=== PATIENT | male | born 1990 | race Caucasian/White ===

== ENCOUNTER 2016-03-24 14:40 | Emergency (ER) | payer OTHER ==
[2016-03-24 14:55] VITALS: BP 137/71; PULSE 60; RESP 18; TEMP 98.5
--- NOTE | 2016-03-24 15:26 | ED ---
General Adult HPI - General Chief complaint: Upper Respiratory Infection Stated complaint: congestion Time Seen by Provider: 03/24/16 15:21 Source: patient, RN notes reviewed Mode of arrival: ambulatory Limitations: no limitations - History of Present Illness Initial comments: Patient would've [age]-year-old male who presents emergency room today with a chief complaint of cough congestion over the last week. Does admit to positive sputum production it's been green in color. Admits increased ear pain on the right side started earlier today. He admits to fullness. Patient denies any other complaints or associated symptoms. Patient denies any recent fever, chills , shortness of breath, chest pain, back pain, abdominal pain, nausea or vomiting , numbness or tingling, dysuria or hematuria, constipation or diarrhea, headaches or visual changes, or any other complaints. - Related Data Previous Rx's Medication Instructions Recorded Albuterol Inhaler [Ventolin Hfa 1 - 2 puff INHALATION Q4-6H PRN #1 03/24/16 Inhaler] inhaler Albuterol Nebulized [Ventolin 2.5 mg INHALATION Q4H PRN 10 Days 03/24/16 Nebulized] predniSONE 60 mg PO DAILY 5 Days 03/24/16 Allergies Allergy/AdvReac Type Severity Reaction Status Date / Time azithromycin [From Zithromax] Allergy Itching Verified 03/24/16 14:55 codeine Allergy Rash/Hives Verified 03/24/16 14:55 Penicillins Allergy Nausea & Verified 03/24/16 14:55 Vomiting & Diarrhea Review of Systems ROS Statement: Those systems with pertinent positive or pertinent negative responses have been documented in the HPI. ROS Other: All systems not noted in ROS Statement are negative. Past Medical History Past Medical History: Fibromyalgia Additional Past Medical History / Comment(s): chronic back pain History of Any Multi-Drug Resistant Organisms: None Reported Past Surgical History: Adenoidectomy, Tonsillectomy Additional Past Surgical History / Comment(s): ORAL SURGERY Past Psychological History: ADD/ADHD Smoking Status: Current every day smoker Past Alcohol Use History: Occasional Past Drug Use History: None Reported General Exam - General Exam Comments Initial Comments: General: The patient is awake and alert, in no distress, and does not appear acutely ill. Eye: Pupils are equal, round and reactive to light, extra-ocular movements are intact. No nystagmus. There is normal conjunctiva bilaterally. No signs of icterus. Ears, nose, mouth and throat: There are moist mucous membranes and no oral lesions. Neck: The neck is supple, there is no tenderness or JVD. Cardiovascular: There is a regular rate and rhythm. No murmur, rub or gallop is appreciated. Respiratory: Lungs are clear to auscultation, respirations are non-labored, breath sounds are equal. No wheezes, stridor, rales, or rhonchi. Musculoskeletal: Normal ROM, no tenderness. Strength 5/5. Sensation intact. Pulses equal bilaterally 2+. Neurological: A&O x 3. CN II-XII intact, There are no obvious motor or sensory deficits. Coordination appears grossly intact. Speech is normal. Skin: Skin is warm and dry and no rashes or lesions are noted. Psychiatric: Cooperative, appropriate mood & affect, normal judgment. Limitations: no limitations Course Vital Signs 03/24/16 14:54 Temperature 98.5 F Pulse Rate 60 Respiratory 18 Rate Blood Pressure 137/71 O2 Sat by Pulse 96 Oximetry Medical Decision Making - Medical Decision Making Patient's x-ray reviewed shows no sign of pneumonia. No other acute abnormalities. Results were discussed with patient. Patient will be discharged home she on steroids for symptoms. Advised mostly viral illness. Is followed the family doctor or return if symptoms increase or worsen. Patient advised continue breathing treatments at home. Disposition Clinical Impression: Acute bronchitis Disposition: HOME SELF-CARE Condition: Good Instructions: Acute Bronchitis (ED) Additional Instructions: Please use medication as discussed. Please follow-up with family doctor in the next 2 days of symptoms have not improved. Please return to emergency room if the symptoms increase or worsen or for any other concerns. Prescriptions: Albuterol Inhaler [Ventolin Hfa Inhaler] 1 - 2 puff INHALATION Q4-6H PRN #1 inhaler PRN Reason: Cough Albuterol Nebulized [Ventolin Nebulized] 2.5 mg INHALATION Q4H PRN 10 Days PRN Reason: Cough predniSONE 60 mg PO DAILY 5 Days Referrals: None,Stated [Primary Care Provider] - 1-2 days Nadeem Meyer MD [STAFF PHYSICIAN] - 1-2 days Time of Disposition: 15:45
--- NOTE | 2016-03-24 15:35 | XR ---
EXAMINATION TYPE: XR chest 2V DATE OF EXAM: 03/24/2016 3:32 PM COMPARISON: 01/07/2016 HISTORY: Cough and congestion FINDINGS: The lungs are clear and there is no pneumothorax, pleural effusion, or focal pneumonia. IMPRESSION: 1. No acute process.
== END 2016-03-24 15:54 | disposition home or self-care (01) ==
LOC: EC 14:40
DX: J20.9 Acute bronchitis, unspecified (principal); H92.01 Otalgia, right ear; F17.200 Nicotine dependence, unspecified, uncomplicated; Z88.0 Allergy status to penicillin; Z88.1 Allergy status to other antibiotic agents; Z88.5 Allergy status to narcotic agent; Z90.89 Acquired absence of other organs
CPT/HCPCS: 71020; 99283

== ENCOUNTER 2017-04-20 08:48 | Emergency (ER) | payer OTHER ==
[2017-04-20 08:57] VITALS: BP 131/66; PULSE 75; RESP 18; TEMP 98.1
--- NOTE | 2017-04-20 09:24 | ED ---
General Adult HPI - General Chief complaint: ENT Stated complaint: throat pain Time Seen by Provider: 04/20/17 09:06 Source: patient, RN notes reviewed Mode of arrival: ambulatory Limitations: no limitations - History of Present Illness Initial comments: 26-year-old male presents to the emergency department with a chief complaint of sore throat. He states he's had this on and off for the past week or so. He' ll get better and then it'll go away. He states there is been no fever or chills. He states that pain in ear. He states he was concerned due to his continued symptoms without that he should be seen. There is been no nausea or vomiting. Patient states is otherwise feeling well. Patient denies any recent fever, chills, shortness of breath, chest pain, back pain, abdominal pain, nausea vomiting, numbness or tingling, dysuria or hematuria, constipation or diarrhea, headaches or visual changes, or any other current symptoms. - Related Data Home Medications Medication Instructions Recorded Confirmed Albuterol Inhaler [Ventolin Hfa 2 puff INHALATION RT-Q6H PRN 04/20/17 04/20/17 Inhaler] Previous Rx's Medication Instructions Recorded Pseudoephedrine HCl [Sudafed 240 mg PO DAILY #7 tab.er.24h 04/20/17 24-Hour] Allergies Allergy/AdvReac Type Severity Reaction Status Date / Time azithromycin [From Zithromax] Allergy Rash/Hives Verified 04/20/17 09:00 codeine Allergy Rash/Hives Verified 04/20/17 09:00 Penicillins Allergy Rash/Hives Verified 04/20/17 09:00 Review of Systems ROS Statement: Those systems with pertinent positive or pertinent negative responses have been documented in the HPI. ROS Other: All systems not noted in ROS Statement are negative. Past Medical History Past Medical History: Fibromyalgia Additional Past Medical History / Comment(s): chronic back pain History of Any Multi-Drug Resistant Organisms: None Reported Past Surgical History: Adenoidectomy, Tonsillectomy Additional Past Surgical History / Comment(s): ORAL SURGERY Past Psychological History: ADD/ADHD Smoking Status: Current every day smoker Past Alcohol Use History: Occasional Past Drug Use History: None Reported General Exam - General Exam Comments Initial Comments: General exam: Alert, active, comfortable in no apparent distress Head: Normocephalic Eyes: Normal reaction of pupils, equal size, normal range of extraocular motion Ears: normal external ear canals, pink tympanic membranes with normal cone of light, some fluid behind the right ureter. Nose: clear with pink turbinates Throat: no erythema or exudates with normal sized tonsils Neck: no masses, no nuchal rigidity Chest: no chest wall deformity Lungs: equal air entry with no crackles or wheeze CVS: S1 and S2 normal with no audible mumurs, regular rhythm Spine: no scoliosis or deformity Skin: no rashes Neurological: No focal deficits, tone is normal in all 4 extremities Limitations: no limitations Course Vital Signs 04/20/17 08:54 Temperature 98.1 F Pulse Rate 75 Respiratory 18 Rate Blood Pressure 131/66 O2 Sat by Pulse 99 Oximetry Medical Decision Making - Medical Decision Making 26-year-old male presents with what appears to have respiratory type illness. This and we discussed him on Sudafed to help clear up some of his congestion. We did discuss Motrin Tylenol for pain we discussed return parameters discussed follow-up and all questions. The patient and family stated they understood and he is in agreement this plan. All questions have been answered. He'll be discharged. - Lab Data Lab Results 04/20/17 Range/Units 09:05 Group A Strep Rapid Negative (Negative) Disposition Clinical Impression: Upper respiratory infection Disposition: HOME SELF-CARE Condition: Stable Instructions: Upper Respiratory Infection (ED), Earache (ED) Additional Instructions: Please use medication as discussed. Please follow up with family doctor if symptoms have not improved over the next two days. Please return to the emergency room if your symptoms increase or worsen or for any other concerns. Prescriptions: Pseudoephedrine HCl [Sudafed 24-Hour] 240 mg PO DAILY #7 tab.er.24h Referrals: Malena Olson DO [REFERRING] - 1-2 days Time of Disposition: 09:43
== END 2017-04-20 09:54 | disposition home or self-care (01) ==
LOC: EC 08:48
DX: J06.9 Acute upper respiratory infection, unspecified (principal); H92.09 Otalgia, unspecified ear; F17.200 Nicotine dependence, unspecified, uncomplicated; Z88.1 Allergy status to other antibiotic agents; Z88.0 Allergy status to penicillin; Z88.5 Allergy status to narcotic agent; Z90.89 Acquired absence of other organs
CPT/HCPCS: 87081; 87430; 87502; 99283

== ENCOUNTER 2018-05-17 22:38 | Emergency (ER) | payer OTHER ==
[2018-05-17 22:42] VITALS: BP 133/83; PULSE 79; RESP 16; TEMP 98.2
[2018-05-17] MEDS ORDERED: IBUPROFEN 600 MG STARTER PACK 4 TAB BTL PO STA (23:20)
[2018-05-17] MEDS ORDERED: CEPHALEXIN 500MG STARTER PACK 4 CAP BTL PO STA (23:20)
[2018-05-17] MEDS ORDERED: ACETAMINOPHEN TAB 500 MG TAB PO STA (23:20)
[2018-05-17] MEDS ORDERED: MECLIZINE 12.5 MG TAB PO STA ×2 (23:20→23:39)
--- NOTE | 2018-05-17 23:26 | ED ---
ENT HPI - General Chief complaint: ENT Stated complaint: Hearing Loss Time Seen by Provider: 05/17/18 22:42 Source: patient, RN notes reviewed, old records reviewed Mode of arrival: ambulatory Limitations: no limitations - History of Present Illness Initial comments: Patient is a 27-year-old male presents emergency department today with complaints of right ear pain and not hearing from the right ear for the past few hours. Patient has had no drainage from the area. He reports having some sinus congestion. He denies any fevers or chills, cough. Patient has had no nausea or vomiting. He states he does feel dizzy and feels like his balance is off this time. - Related Data Home Medications Medication Instructions Recorded Confirmed Ibuprofen [Motrin Ib] 400 mg PO Q6H PRN 05/17/18 05/17/18 Pseudoephedrine HCl [Sudafed] 120 mg PO Q6H PRN 05/17/18 05/17/18 Previous Rx's Medication Instructions Recorded Cephalexin [Keflex] 500 mg PO Q8HR #21 cap 05/17/18 Ibuprofen 600 mg PO TID #30 tablet 05/17/18 Meclizine [Antivert] 25 mg PO TID #20 tab 05/17/18 Allergies Allergy/AdvReac Type Severity Reaction Status Date / Time azithromycin [From Zithromax] Allergy Rash/Hives Verified 05/17/18 22:51 codeine Allergy Rash/Hives Verified 05/17/18 22:51 Penicillins Allergy Rash/Hives Verified 05/17/18 22:51 Review of Systems ROS Statement: Those systems with pertinent positive or pertinent negative responses have been documented in the HPI. ROS Other: All systems not noted in ROS Statement are negative. Past Medical History Past Medical History: Fibromyalgia Additional Past Medical History / Comment(s): chronic back pain, History of Any Multi-Drug Resistant Organisms: None Reported Past Surgical History: Adenoidectomy, Hernia Repair, Tonsillectomy Additional Past Surgical History / Comment(s): ORAL SURGERY, Past Psychological History: ADD/ADHD Smoking Status: Current every day smoker Past Alcohol Use History: Occasional Past Drug Use History: Marijuana General Exam - General Exam Comments Initial Comments: Well-appearing 27-year-old male. Alert and oriented 3. No distress. General: Well appearing, well nourished, in no distress. Oriented x 3, normal mood and affect . Ambulating without difficulty. Skin: Good turgor, no rash, unusual bruising or prominent lesions Hair: Normal texture and distribution. HEENT: Head: Normocephalic, atraumatic, no visible or palpable masses, depressions, or scaring. Eyes: Visual acuity intact, conjunctiva clear, sclera non-icteric, EOM intact, PERRL. Ears: EACs clear, TM bulging evidence of effusion. Tenderness over auricle. Nose: No external lesions, mucosa non-inflamed, septum and turbinates normal Mouth: Mucous membranes moist, no mucosal lesions. Teeth/Gums: No obvious caries or periodontal disease. No gingival inflammation or significant resorption. Pharynx: Mucosa non-inflamed, no tonsillar hypertrophy or exudate Neck: Supple, without lesions, bruits, or adenopathy, thyroid non-enlarged and non-tender Heart: No cardiomegaly or thrills; regular rate and rhythm, no murmur or gallop Lungs: Clear to auscultation and percussion Abdomen: Bowel sounds normal, no tenderness, organomegaly, masses, or hernia , decreased range of motion, instability, atrophy or abnormal strength or tone in the head, neck, spine, ribs, pelvis or extremities. Neurologic: CN 2-12 normal. Sensation to pain, touch, and proprioception normal. DTRs normal in upper and lower extremities. No pathologic reflexes. Psychiatric: Oriented X3, intact recent and remote memory, judgment and insight, normal mood and affect. Limitations: no limitations Course Vital Signs 05/17/18 22:39 Temperature 98.2 F Pulse Rate 79 Respiratory 16 Rate Blood Pressure 133/83 O2 Sat by Pulse 98 Oximetry Medical Decision Making - Medical Decision Making 27-year-old male present to his pharmacy today with concerns for right ear infection and decreased hearing from the right ear for the past few hours. He complains of fullness severe pain. He's been taking a sinus congestion. This time Patient has a bulging right TM. No evidence of TM perforation. He has no mastoid tenderness. Patient will be started on Keflex due to ALLERGY to penicillin azithromycin. Patient given meclizine for vertigo and dizziness likely related to an ear fullness. Patient will be discharged with close follow-up with ENT. All questions answered. Disposition Clinical Impression: Otitis media Disposition: HOME SELF-CARE Condition: Good Instructions (If sedation given, give patient instructions): Earache (ED) Additional Instructions: Patient advised to follow-up with her primary care doctor and ENT. Return to the emergency department if any alarming signs or symptoms occur. Prescriptions: Meclizine [Antivert] 25 mg PO TID #20 tab Ibuprofen 600 mg PO TID #30 tablet Cephalexin [Keflex] 500 mg PO Q8HR #21 cap Is patient prescribed a controlled substance at d/c from ED?: No Referrals: None,Stated [Primary Care Provider] - 1-2 days Ruben Yo DO [Doctor of Osteopathic Medicine] - 1-2 days Time of Disposition: 23:23
== END 2018-05-17 23:45 | disposition home or self-care (01) ==
LOC: EC 22:38
DX: H66.91 Otitis media, unspecified, right ear (principal); R09.81 Nasal congestion; R42 Dizziness and giddiness; F17.200 Nicotine dependence, unspecified, uncomplicated; Z88.0 Allergy status to penicillin; Z88.1 Allergy status to other antibiotic agents; Z88.5 Allergy status to narcotic agent
CPT/HCPCS: 99284

== ENCOUNTER 2018-09-19 23:36 | Emergency (ER) | payer OTHER ==
[2018-09-20] MEDS ORDERED: KETOROLAC 30 MG/ML 1 ML VIAL IVP STA (00:08)
[2018-09-20] MEDS ORDERED: SODIUM CHLORIDE 0.9% 1,000 ML IV STA (00:08)
[2018-09-20] MEDS ORDERED: ONDANSETRON 4 MG/2 ML VIAL IVP STA (00:08)
--- NOTE | 2018-09-20 00:48 | ED ---
Abdominal Pain HPI - General Chief Complaint: Abdominal Pain Stated Complaint: Hernia Time Seen by Provider: 09/19/18 23:49 Source: patient Mode of arrival: ambulatory Limitations: no limitations - History of Present Illness Initial Comments: 27 year-old male patient presents to the emergency department today for evaluation appear he umbilical abdominal pain. Patient states that this started 2-3 days ago. Patient states pain is worsening. Patient states he does have history of umbilical hernia and this feels similar. Patient states he is usually able to get the hernia to reduce however he is unable to do so with this one. Patient states there is very tender to touch. States that he is nauseated. States he is not having bowel movements or passing gas since Thursday. Denies any fever but states he has been chilled. Denies taking any medication for his symptoms. Denies any other abdominal surgeries. Patient denies any recent rash, shortness breath, chest pain, back pain, numbness, tingling, dizziness, weakness, hematuria, dysuria, urinary urgency, urinary frequency, headache, visual changes, or any other complaints. - Related Data Home Medications Medication Instructions Recorded Confirmed Ibuprofen [Motrin Ib] 400 mg PO Q6H PRN 05/17/18 05/17/18 Pseudoephedrine HCl [Sudafed] 120 mg PO Q6H PRN 05/17/18 05/17/18 Previous Rx's Medication Instructions Recorded Cephalexin [Keflex] 500 mg PO Q8HR #21 cap 05/17/18 Ibuprofen 600 mg PO TID #30 tablet 05/17/18 Meclizine [Antivert] 25 mg PO TID #20 tab 05/17/18 Allergies Allergy/AdvReac Type Severity Reaction Status Date / Time azithromycin [From Zithromax] Allergy Rash/Hives Verified 05/17/18 22:51 codeine Allergy Rash/Hives Verified 05/17/18 22:51 Penicillins Allergy Rash/Hives Verified 05/17/18 22:51 Review of Systems ROS Statement: Those systems with pertinent positive or pertinent negative responses have been documented in the HPI. ROS Other: All systems not noted in ROS Statement are negative. Past Medical History Past Medical History: Fibromyalgia Additional Past Medical History / Comment(s): chronic back pain, History of Any Multi-Drug Resistant Organisms: None Reported Past Surgical History: Adenoidectomy, Hernia Repair, Tonsillectomy Additional Past Surgical History / Comment(s): ORAL SURGERY, Past Psychological History: ADD/ADHD Smoking Status: Current every day smoker Past Alcohol Use History: Occasional Past Drug Use History: Marijuana General Exam Limitations: no limitations General appearance: alert, in no apparent distress, other (This is a well-developed, well-nourished adult male patient in no acute distress. Vital signs upon presentation are temperature 98.0F, pulse 95, respirations 17, blood pressure 143/78, pulse ox 97% on room air.) Eye exam: Present: normal appearance, PERRL, EOMI. Absent: scleral icterus, conjunctival injection, periorbital swelling ENT exam: Present: normal exam, normal oropharynx, mucous membranes moist Respiratory exam: Present: normal lung sounds bilaterally. Absent: respiratory distress, wheezes, rales, rhonchi, stridor Cardiovascular Exam: Present: regular rate, normal rhythm, normal heart sounds. Absent: systolic murmur, diastolic murmur, rubs, gallop, clicks GI/Abdominal exam: Present: soft, tenderness (Periumbilical), normal bowel sounds. Absent: distended, guarding, rebound, rigid Neurological exam: Present: alert, oriented X3, CN II-XII intact Psychiatric exam: Present: normal affect, normal mood Skin exam: Present: warm, dry, intact, normal color. Absent: rash Course Vital Signs 09/19/18 23:42 Temperature 98.0 F Pulse Rate 95 Respiratory 17 Rate Blood Pressure 143/78 O2 Sat by Pulse 97 Oximetry Medical Decision Making - Medical Decision Making 27-year-old male patient presented to the emergency department today for evaluation of the umbilical abdominal pain. Patient is concerned he may have a hernia. Physical examination did reveal periumbilical tenderness. Labs reviewed and are unremarkable. He is afebrile. CT scan was obtained and showed prominent mesenteric and retroperitoneal lymph nodes. I did discuss findings and results with the patient. We did discuss mesenteric adenitis as a cause for his symptoms however we did discuss the possibility of early appendicitis. Return parameters were discussed in detail. He is to maintain low threshold for return. He verbalizes understanding and agrees with this plan. - Lab Data Result diagrams: 09/20/18 00:39 09/20/18 00:39 Lab Results 09/20/18 09/20/18 09/20/18 Range/Units 00:39 00:39 00:39 WBC 9.0 (3.8-10.6) k/uL RBC 5.10 (4.30-5.90) m/uL Hgb 15.1 (13.0-17.5) gm/dL Hct 43.7 (39.0-53.0) % MCV 85.7 (80.0-100.0) fL MCH 29.5 (25.0-35.0) pg MCHC 34.4 (31.0-37.0) g/dL RDW 12.5 (11.5-15.5) % Plt Count 283 (150-450) k/uL Neutrophils % 46 % Lymphocytes % 41 % Monocytes % 6 % Eosinophils % 4 % Basophils % 1 % Neutrophils # 4.1 (1.3-7.7) k/uL Lymphocytes # 3.7 (1.0-4.8) k/uL Monocytes # 0.6 (0-1.0) k/uL Eosinophils # 0.4 (0-0.7) k/uL Basophils # 0.1 (0-0.2) k/uL Sodium 140 (137-145) mmol/L Potassium 3.9 (3.5-5.1) mmol/L Chloride 107 (98-107) mmol/L Carbon Dioxide 24 (22-30) mmol/L Anion Gap 9 mmol/L BUN 16 (9-20) mg/dL Creatinine 1.05 (0.66-1.25) mg/dL Est GFR (CKD-EPI)AfAm >90 (>60 ml/min/1.73 sqM) Est GFR (CKD-EPI)NonAf >90 (>60 ml/min/1.73 sqM) Glucose 86 (74-99) mg/dL Plasma Lactic Acid Lane 1.1 (0.7-2.0) mmol/L Calcium 9.5 (8.4-10.2) mg/dL Total Bilirubin 0.5 (0.2-1.3) mg/dL AST 22 (17-59) U/L ALT 31 (21-72) U/L Alkaline Phosphatase 53 (38-126) U/L Total Protein 6.6 (6.3-8.2) g/dL Albumin 4.2 (3.5-5.0) g/dL Amylase 54 (30-110) U/L Lipase 89 (23-300) U/L Urine Color Urine Appearance (Clear) Urine pH (5.0-8.0) Ur Specific [place] (1.001-1.035) Urine Protein (Negative) Urine Glucose (UA) (Negative) Urine Ketones (Negative) Urine Blood (Negative) Urine Nitrite (Negative) Urine Bilirubin (Negative) Urine Urobilinogen (<2.0) mg/dL Ur Leukocyte Esterase (Negative) Urine RBC (0-5) /hpf Amorphous Sediment (None) /hpf Urine Mucus (None) /hpf 09/20/18 Range/Units 00:39 WBC (3.8-10.6) k/uL RBC (4.30-5.90) m/uL Hgb (13.0-17.5) gm/dL Hct (39.0-53.0) % MCV (80.0-100.0) fL MCH (25.0-35.0) pg MCHC (31.0-37.0) g/dL RDW (11.5-15.5) % Plt Count (150-450) k/uL Neutrophils % % Lymphocytes % % Monocytes % % Eosinophils % % Basophils % % Neutrophils # (1.3-7.7) k/uL Lymphocytes # (1.0-4.8) k/uL Monocytes # (0-1.0) k/uL Eosinophils # (0-0.7) k/uL Basophils # (0-0.2) k/uL Sodium (137-145) mmol/L Potassium (3.5-5.1) mmol/L Chloride (98-107) mmol/L Carbon Dioxide (22-30) mmol/L Anion Gap mmol/L BUN (9-20) mg/dL Creatinine (0.66-1.25) mg/dL Est GFR (CKD-EPI)AfAm (>60 ml/min/1.73 sqM) Est GFR (CKD-EPI)NonAf (>60 ml/min/1.73 sqM) Glucose (74-99) mg/dL Plasma Lactic Acid Lane (0.7-2.0) mmol/L Calcium (8.4-10.2) mg/dL Total Bilirubin (0.2-1.3) mg/dL AST (17-59) U/L ALT (21-72) U/L Alkaline Phosphatase (38-126) U/L Total Protein (6.3-8.2) g/dL Albumin (3.5-5.0) g/dL Amylase (30-110) U/L Lipase (23-300) U/L Urine Color Yellow Urine Appearance Cloudy (Clear) Urine pH 6.5 (5.0-8.0) Ur Specific [place] 1.023 (1.001-1.035) Urine Protein Trace H (Negative) Urine Glucose (UA) Negative (Negative) Urine Ketones Negative (Negative) Urine Blood Negative (Negative) Urine Nitrite Negative (Negative) Urine Bilirubin Negative (Negative) Urine Urobilinogen 6.0 (<2.0) mg/dL Ur Leukocyte Esterase Negative (Negative) Urine RBC 1 (0-5) /hpf Amorphous Sediment Rare H (None) /hpf Urine Mucus Rare H (None) /hpf - Radiology Data Radiology results: report reviewed, image reviewed CT abdomen and pelvis with contrast was obtained. Report reviewed in its entirety. Impression by Dr. Montero shows no acute abnormality in the abdomen or pelvis. Mild prominence of the bladder vomiting be secondary to under distention. Please correlate with urinalysis was concerning for cystitis. Also mildly prominent mesenteric and retroperitoneal lymph nodes which are nonspecific but may be reactive. Disposition Clinical Impression: Abdominal pain Disposition: HOME SELF-CARE Condition: Good Instructions (If sedation given, give patient instructions): Mesenteric Adenitis (ED) Additional Instructions: Take Tylenol Motrin for pain control. Follow-up with your primary care physician for recheck in 1-2 days. Return to the emergency department immediately should you have increased in pain severity, right lower abdomen pain, vomiting, or develop fever or chills. Is patient prescribed a controlled substance at d/c from ED?: No Referrals: None,Stated [Primary Care Provider] - 1-2 days Time of Disposition: 01:21
[2018-09-20 00:53] LABS: Basophils # (A) 0.1 k/uL (0-0.2); Basophils % (A) 1 %; Eosinophils # (A) 0.4 k/uL (0-0.7); Eosinophils % (A) 4 %; HCT 43.7 % (39.0-53.0); HGB 15.1 gm/dL (13.0-17.5); Lymphocytes # (A) 3.7 k/uL (1.0-4.8); Lymphocytes % (A) 41 %; MCH 29.5 pg (25.0-35.0); MCHC 34.4 g/dL (31.0-37.0); MCV 85.7 fL (80.0-100.0); Mean Platelet Volume 6.3; Monocytes # (A) 0.6 k/uL (0-1.0); Monocytes % (A) 6 %; Neutrophils # (A) 4.1 k/uL (1.3-7.7); Neutrophils % (A) 46 %; Platelet Count 283 k/uL (150-450); RDW 12.5 % (11.5-15.5)
[2018-09-20 00:56] LABS: Amorphous Sediment,Urine Rare /hpf; Appearance,Urine Cloudy (Clear); Bilirubin,Urine Negative (Negative); Blood,Urine Negative (Negative); Color,Urine Yellow; Glucose,Urine (UA) Negative (Negative); Ketones,Urine Negative (Negative); Leukocyte Esterase,Urine Negative (Negative); Mucus,Urine Rare /hpf; Nitrite,Urine Negative (Negative); PH, Urine 6.5 (5.0-8.0); Protein,Urine Trace (Negative); RBC,Urine 1 /hpf (0-5); Specific Gravity,Urine 1.023 (1.001-1.035)
[2018-09-20 01:01] LABS: ALT 31 U/L (21-72); AST 22 U/L (17-59); African American GFR (CKD) >90 (>60 ml/min/1.73 sqM); Albumin 4.2 g/dL (3.5-5.0); Alkaline Phosphatase 53 U/L (38-126); Amylase 54 U/L (30-110); Anion Gap 9 mmol/L; Blood Urea Nitrogen 16 mg/dL (9-20); Calcium 9.5 mg/dL (8.4-10.2); Carbon Dioxide 24 mmol/L (22-30); Chloride 107 mmol/L (98-107); Glucose 86 mg/dL (74-99); Potassium 3.9 mmol/L (3.5-5.1); Sodium 140 mmol/L (137-145); Total Bilirubin 0.5 mg/dL (0.2-1.3); Total Protein 6.6 g/dL (6.3-8.2)
--- NOTE | 2018-09-20 01:14 | CT ---
EXAM: CT Abdomen and Pelvis With Intravenous Contrast CLINICAL HISTORY: ITS.REASON CT Reason: abdominal pain TECHNIQUE: Axial computed tomography images of the abdomen and pelvis with intravenous contrast. CTDI is 19.47 mGy and DLP is 920.2 mGy-cm. This CT exam was performed using one or more of the following dose reduction techniques: automated exposure control, adjustment of the mA and/or kV according to patient size, and/or use of iterative reconstruction technique. COMPARISON: None FINDINGS: Liver: Normal. No focal lesion. Spleen: Normal. No focal lesion. Gallbladder: Contracted gallbladder. No stones or biliary dilatation. Pancreas: Normal. No acute inflammation. No mass. Adrenal glands: Normal. No mass. Kidneys: Normal. No hydronephrosis or stone. No mass. Bowel: Normal appendix. No bowel obstruction or inflammation. Urinary bladder: Mild prominence of the bladder wall may be secondary to underdistention. Reproductive organs: Normal. Muscles: No mass. Subcutaneous tissues: Normal. Peritoneal space: Normal. No free fluid. Lymph nodes: Mildly prominent mesenteric and retroperitoneal lymph nodes are nonspecific but may be reactive. Vessels: Normal. No aneurysm or dissection. Bones: No acute fracture or bony lesion. Lung bases: Dependent atelectasis bilaterally. IMPRESSION: No acute abnormality in the abdomen or pelvis. Mild prominence of the bladder wall may be secondary to underdistention. Please correlate with urinalysis if concerned for cystitis.
[2018-09-20 01:49] VITALS: BP 109/60; PULSE 82; RESP 18; TEMP 97.8
== END 2018-09-20 01:50 | disposition home or self-care (01) ==
LOC: EC 23:36
DX: R10.9 Unspecified abdominal pain (principal); R10.815 Periumbilic abdominal tenderness; F17.200 Nicotine dependence, unspecified, uncomplicated; Z88.0 Allergy status to penicillin; Z88.1 Allergy status to other antibiotic agents; Z88.5 Allergy status to narcotic agent
CPT/HCPCS: 36415; 80053; 82150; 83605; 83690; 85025; 81001; 74177; 99284; 96374; 96375; 96361; J2405; J1885; Q9967

== ENCOUNTER 2018-12-30 12:57 | Emergency (ER) | payer BC ==
[2018-12-30 13:01] VITALS: RESP 18
--- NOTE | 2018-12-30 13:26 | ED ---
General Adult HPI - General Chief complaint: Chest Pain Stated complaint: Chest pain Time Seen by Provider: 12/30/18 13:02 Source: patient Mode of arrival: wheelchair Limitations: no limitations - History of Present Illness Initial comments: Dictation was produced using [employer] dictation software. please excuse any grammatical, word or spelling errors. Chief Complaint: 28-year-old male sent in from primary care physician for EKG abnormalities and chest pain. History of Present Illness: Patient is a 28-year-old male he was sent in by primary care physician for chest pain. Patient has been having a cold for the last several days. He went to go be evaluated by his primary care physician for chest pain. EKG was performed is concerned that patient had elevations in anterior precordial leads. Patient reports that his pain is to his left anterior chest. States the pain is dull and it radiate down the left upper ex tremity. Patient states that there is no reliable exacerbating or mitigating factors however. Patient denies any cardiac history. He is told he has a heart murmur from when he was a child. Patient has history of fibromyalgia. Dr. Xiong was sending patient here to the emergency department for EKG abnormalities. The ROS documented in this emergency department record has been reviewed and confirmed by me. Those systems with pertinent positive or negative responses have been documented in the HPI. All other systems are other negative and/or noncontributory. PHYSICAL EXAM: General Impression: Alert and oriented x3, not in acute distress HEENT: Normocephalic atraumatic, extra-ocular movements intact, pupils equal and reactive to light bilaterally, mucous membranes moist. Cardiovascular: Heart regular rate and rhythm, S1&S2 audible, no murmurs, rubs or gallops Chest: Lungs clear to auscultation bilaterally, no rhonchi, no wheeze, no rales Abdomen: Bowel sounds present, abdomen soft, non-tender, non-distended, no organomegaly Musculoskeletal: Pulses present and equal in all extremities, no peripheral edema Motor: no focal deficits noted Neurological: CN II-XII grossly intact, no focal motor or sensory deficits noted Skin: Intact with no visualized rashes Psych: Normal affect and mood ED course: 28-year-old male presents with atypical chest pain with typical features. All signs upon arrival are within acceptable limits. Physical examination is benign. EKG was reviewed from primary care physician's office showing poor R-wave progression in the anterior precordial leads, T-wave inversion in lead 3.. EKG was performed at our facility showing similar findings. EKG was compared to EKG from 01/06/2016 showing no changes. These EKG findings are baseline for patient. Laboratory evaluation obtained. CBC, metabolic panel is unremarkable. Cardiac enzymes negative. Chest x-ray is nonacute. Discussed with patient that it is the medical recommendation to have serial troponins to further decrease risk of acute coronary syndrome. Patient states he does not want to wait around for the second troponin. The risks were explained to patient that we are unable to comp letely Harken score criteria with just one troponin. Patient understands the risk of being discharged. Patient lives nearby and can come to the emergency department if he begins having chest pain again. Otherwise he is checked follow-up with primary care physician upon discharge. EKG interpretation: Ventricular rate 83, normal sinus rhythm,. Interval 132, QS 100, QTC 437. No [place] prolongation, no QTC prolongation, no ST or T-wave changes noted. EKG compared to 01/05/2016 showing no changes. Overall, this EKG is unremarkable - Related Data Home Medications Medication Instructions Recorded Confirmed D-Methorphan/PE/Acetaminophen 2 cap PO Q6H PRN 12/30/18 12/30/18 [Vicks Dayquil Liquicaps] guaiFENesin [Mucinex] 600 mg PO Q12H PRN 12/30/18 12/30/18 Allergies Allergy/AdvReac Type Severity Reaction Status Date / Time azithromycin [From Zithromax] Allergy Rash/Hives Verified 12/30/18 13:49 codeine Allergy Rash/Hives Verified 12/30/18 13:49 Penicillins Allergy Rash/Hives Verified 12/30/18 13:49 Review of Systems ROS Statement: Those systems with pertinent positive or pertinent negative responses have been documented in the HPI. ROS Other: All systems not noted in ROS Statement are negative. Past Medical History Past Medical History: Fibromyalgia Additional Past Medical History / Comment(s): chronic back pain, heart murmur History of Any Multi-Drug Resistant Organisms: None Reported Past Surgical History: Adenoidectomy, Hernia Repair, Tonsillectomy Additional Past Surgical History / Comment(s): ORAL SURGERY, Past Psychological History: ADD/ADHD Smoking Status: Current every day smoker Past Alcohol Use History: Occasional Past Drug Use History: Marijuana General Exam Limitations: no limitations Course Vital Signs 12/30/18 12:59 Temperature 98.1 F Pulse Rate 86 Respiratory 18 Rate Blood Pressure 148/84 O2 Sat by Pulse 98 Oximetry Medical Decision Making - Lab Data Result diagrams: 12/30/18 13:20 12/30/18 13:20 Lab Results 12/30/18 12/30/18 12/30/18 Range/Units 13:20 13:20 13:20 WBC 9.3 (3.8-10.6) k/uL RBC 5.31 (4.30-5.90) m/uL Hgb 16.3 (13.0-17.5) gm/dL Hct 46.2 (39.0-53.0) % MCV 87.0 (80.0-100.0) fL MCH 30.6 (25.0-35.0) pg MCHC 35.2 (31.0-37.0) g/dL RDW 12.1 (11.5-15.5) % Plt Count 281 (150-450) k/uL Neutrophils % 60 % Lymphocytes % 27 % Monocytes % 6 % Eosinophils % 4 % Basophils % 1 % Neutrophils # 5.6 (1.3-7.7) k/uL Lymphocytes # 2.5 (1.0-4.8) k/uL Monocytes # 0.5 (0-1.0) k/uL Eosinophils # 0.4 (0-0.7) k/uL Basophils # 0.1 (0-0.2) k/uL Sodium 143 (137-145) mmol/L Potassium 3.9 (3.5-5.1) mmol/L Chloride 108 H (98-107) mmol/L Carbon Dioxide 24 (22-30) mmol/L Anion Gap 11 mmol/L BUN 7 L (9-20) mg/dL Creatinine 1.00 (0.66-1.25) mg/dL Est GFR (CKD-EPI)AfAm >90 (>60 ml/min/1.73 sqM) Est GFR (CKD-EPI)NonAf >90 (>60 ml/min/1.73 sqM) Glucose 103 H (74-99) mg/dL Calcium 9.7 (8.4-10.2) mg/dL Troponin I <0.012 (0.000-0.034) ng/mL Disposition Clinical Impression: Chest pain Disposition: HOME SELF-CARE Condition: Good Instructions (If sedation given, give patient instructions): Chest Pain (ED) Is patient prescribed a controlled substance at d/c from ED?: No Referrals: None,Stated [Primary Care Provider] - 1-2 days Time of Disposition: 14:18
[2018-12-30 13:38] LABS: Basophils # (A) 0.1 k/uL (0-0.2); Basophils % (A) 1 %; Eosinophils # (A) 0.4 k/uL (0-0.7); Eosinophils % (A) 4 %; HCT 46.2 % (39.0-53.0); HGB 16.3 gm/dL (13.0-17.5); Lymphocytes # (A) 2.5 k/uL (1.0-4.8); Lymphocytes % (A) 27 %; MCH 30.6 pg (25.0-35.0); MCHC 35.2 g/dL (31.0-37.0); Mean Platelet Volume 5.7; Monocytes # (A) 0.5 k/uL (0-1.0); Monocytes % (A) 6 %; Neutrophils # (A) 5.6 k/uL (1.3-7.7); Neutrophils % (A) 60 %; Platelet Count 281 k/uL (150-450); RBC 5.31 m/uL (4.30-5.90); RDW 12.1 % (11.5-15.5); WBC 9.3 k/uL (3.8-10.6)
[2018-12-30 13:46] LABS: African American GFR (CKD) >90 (>60 ml/min/1.73 sqM); Anion Gap 11 mmol/L; Blood Urea Nitrogen 7 mg/dL (9-20); Calcium 9.7 mg/dL (8.4-10.2); Carbon Dioxide 24 mmol/L (22-30); Chloride 108 mmol/L (98-107); Glucose 103 mg/dL (74-99); Potassium 3.9 mmol/L (3.5-5.1); Sodium 143 mmol/L (137-145)
--- NOTE | 2018-12-30 13:59 | XR ---
EXAMINATION TYPE: XR chest 2V DATE OF EXAM: 12/30/2018 COMPARISON: NONE TECHNIQUE: PA and lateral views submitted. HISTORY: Chest pain FINDINGS: The lungs are clear and there is no pneumothorax, pleural effusion, or focal pneumonia. Hyperinflat ion the lungs suggests COPD. No overt failure. IMPRESSION: 1. No acute process.
[2018-12-30 14:33] VITALS: BP 151/91; TEMP 97.6
[2018-12-30 14:40] VITALS: PULSE 71
== END 2018-12-30 14:32 | disposition home or self-care (01) ==
LOC: EC 12:57
DX: R07.89 Other chest pain (principal); R94.31 Abnormal electrocardiogram [ECG] [EKG]; M79.7 Fibromyalgia; F17.200 Nicotine dependence, unspecified, uncomplicated; Z88.1 Allergy status to other antibiotic agents; Z88.0 Allergy status to penicillin; Z88.5 Allergy status to narcotic agent
CPT/HCPCS: 36415; 71046; 80048; 84484; 85025; 93005; 99285

== ENCOUNTER 2019-08-30 01:28 | Emergency (ER) | payer BC ==
[2019-08-30 01:35] VITALS: BP 135/88; RESP 18; TEMP 98.4
--- NOTE | 2019-08-30 01:51 | ED ---
General Adult HPI - General Chief complaint: Arrhythmia/Palpitations Stated complaint: Slow heartrate Time Seen by Provider: 08/30/19 01:36 Source: patient Mode of arrival: ambulatory Limitations: no limitations - History of Present Illness Initial comments: Malvin is a 28-year-old male comes to the ER today for evaluation of palpitations. Patient reports that approximately 2 weeks ago he was working outdoors when he became overheated and his heart began to race. Reports he was seen at outside hospital where he had an EKG and was told that he wasn't having a heart attack. Patient states he was told to stop drinking caffeine which she has done. He reports a however he continues to have intermittent palpitations become very anxious about this because he has very strong family history of early cardiac disease including maternal grandfather and his 2 brothers who before there were 50 from cardiac disease Patient states that he feels well during the day he states that today he fell asleep and woke up feeling like his heart was racing and that he could feel his pulse in his abdomen. He decided to come the ER for evaluation. Patient does report to occasional cocaine and recreational adderall use. - Related Data Home Medications Medication Instructions Recorded Confirmed D-Methorphan/PE/Acetaminophen 2 cap PO Q6H PRN 12/30/18 12/30/18 [Vicks Dayquil Liquicaps] guaiFENesin [Mucinex] 600 mg PO Q12H PRN 12/30/18 12/30/18 Allergies Allergy/AdvReac Type Severity Reaction Status Date / Time azithromycin [From Zithromax] Allergy Rash/Hives Verified 08/30/19 01:35 codeine Allergy Rash/Hives Verified 08/30/19 01:35 Penicillins Allergy Rash/Hives Verified 08/30/19 01:35 Review of Systems ROS Statement: Those systems with pertinent positive or pertinent negative responses have been documented in the HPI. ROS Other: All systems not noted in ROS Statement are negative. Past Medical History Past Medical History: Fibromyalgia Additional Past Medical History / Comment(s): chronic back pain, heart murmur History of Any Multi-Drug Resistant Organisms: None Reported Past Surgical History: Adenoidectomy, Hernia Repair, Tonsillectomy Additional Past Surgical History / Comment(s): ORAL SURGERY, Past Psychological History: ADD/ADHD Smoking Status: Current every day smoker Past Alcohol Use History: Occasional Past Drug Use History: Cocaine, Marijuana General Exam - General Exam Comments Initial Comments: Physical Exam GENERAL: Patient is well-developed and well-nourished. Patient is nontoxic and well- hydrated and is in no distress. HENT: Normocephalic, Atraumatic. EYES: PERRL, EOMI PULMONARY: Unlabored respirations. No audible rales rhonchi or wheezing was noted. CARDIOVASCULAR: There is a regular rate and rhythm without any murmurs gallops or rubs. ABDOMEN: Soft and nontender with normal bowel sounds. SKIN: Skin is clear with no lesions or rashes and otherwise unremarkable. : Deferred NEUROLOGIC: Patient is alert and oriented x3. Moving all extremities spontaneously MUSCULOSKELETAL: Normal extremities with adequate strength and full range of motion. No lower extremity swelling or edema. No calf tenderness. PSYCHIATRIC: Normal psychiatric evaluation. Limitations: no limitations Course Vital Signs 08/30/19 08/30/19 01:31 02:10 Temperature 98.4 F Pulse Rate 103 H Pulse Rate [ 84 Bilateral] Respiratory 18 Rate Blood Pressure 135/88 O2 Sat by Pulse 99 Oximetry EKG Findings - EKG Comments: EKG Findings:: EKG was obtained due to complaint palpitations, EKG was obtained at 1:45 AM, rate is 102 rhythm is sinus tachycardia, rightward axis normal intervals, FL 152, QRS 86, QTC is 4:30 there are no acute ST elevations or depressions there is no evidence of acute ischemia or infarction Medical Decision Making - Medical Decision Making Patient was seen and evaluated history was obtained patient, EKG was reviewed Given the patient's family history blood work was ordered including a TSH, CBC, CMP - however the patient declined any blood draw stating that he doesn't want his blood drawn because it causes him to bruise. Patient preferred to leave AMA at this time. The patient has decided to leave against medical advice because he does not want any blood draw or IV The patient has adequate capacity to make medical decisions. The risks have been explained to the patient, including worsening illness, chronic pain, permanent disability and . The benefits of workup have also been explained, including the availability and proximity of nurses, physicians, monitoring, diagnostic testing, treatment The patient was able to understand and state the risks and benefits of hospital admission. This was witnessed by nurse Nisha Logan and me. The patient the opportunity to ask questions about their medical condition. The patient was treated to the extent that they would allow and knows that they may return for care at any time. Disposition Clinical Impression: Heart palpitations Disposition: Left Against Medical Advice Condition: Stable Instructions (If sedation given, give patient instructions): Heart Palpitations (ED) Is patient prescribed a controlled substance at d/c from ED?: No Referrals: None,Stated [Primary Care Provider] - 1-2 days
[2019-08-30 02:16] VITALS: PULSE 84
[2019-08-30] MEDS ORDERED: SODIUM CHLORIDE 0.9% 1,000 ML IV STA (02:16)
== END 2019-08-30 02:40 | disposition left against medical advice (07) ==
LOC: EC 01:28
DX: R00.2 Palpitations (principal); F17.200 Nicotine dependence, unspecified, uncomplicated; Z88.0 Allergy status to penicillin; Z88.1 Allergy status to other antibiotic agents; Z88.5 Allergy status to narcotic agent
CPT/HCPCS: 93005; 99284

== ENCOUNTER 2020-05-24 08:26 | Day surgery (SDC) | payer BC ==
[2020-05-23 08:36] VITALS: BMI 28.2
[~2020-05-24 08:26] MED LIST: LACTATED RINGERS 1,000 ML IV SCH
[2020-05-24] MEDS ORDERED: LIDOCAINE 1% INJ 10MG/ML (20 ML MDV) ONE ×2 (08:27→09:04)
[2020-05-24] MEDS ORDERED: PROPOFOL 10 MG/ML 20 ML VIAL IV ONE ×2 (08:27→09:04)
[2020-05-24 08:47] VITALS: TEMP 97.8
--- NOTE | 2020-05-24 09:06 | P.GSHP ---
History of Present Illness H&P Date: 05/24/20 Chief Complaint: Gastroenteritis, epigastric pain This a 21-year-old male who presents today for EGD and colonoscopy. He's had complaints of epigastric pain and diarrhea. Past Medical History Past Medical History: Fibromyalgia Additional Past Medical History / Comment(s): chronic back pain, heart murmur, DIGESTIVE PROBLEMS History of Any Multi-Drug Resistant Organisms: None Reported Past Surgical History: Adenoidectomy, Hernia Repair, Tonsillectomy Additional Past Surgical History / Comment(s): ORAL SURGERY, Past Anesthesia/Blood Transfusion Reactions: No Reported Reaction Smoking Status: Current every day smoker - Past Family History Mother Family Medical History: Deep Vein Thrombosis (DVT) Medications and Allergies Home Medications Medication Instructions Recorded Confirmed Type No Known Home Medications 05/23/20 05/24/20 History Allergies Allergy/AdvReac Type Severity Reaction Status Date / Time azithromycin [From Zithromax] Allergy Rash/Hives Verified 05/24/20 08:46 codeine Allergy Rash/Hives Verified 05/24/20 08:46 Penicillins Allergy Rash/Hives Verified 05/24/20 08:46 Surgical - Exam Vital Signs Temp Pulse Resp BP Pulse Ox 97.8 F 107 H 17 118/63 98 05/24/20 08:46 05/24/20 08:46 05/24/20 08:46 05/24/20 08:46 05/24/20 08:46 - General well developed, well nourished, no distress - Eyes PERRL - ENT normal pinna - Neck no masses - Respiratory normal expansion - Cardiovascular Rhythm: regular - Abdomen Abdomen: soft, non tender Assessment and Plan Assessment: Epigastric pain, diarrhea. We'll perform EGD and colonoscopy
--- NOTE | 2020-05-24 09:19 | P.OP ---
Date of Procedure: 05/24/20 Preoperative Diagnosis: Gastroenteritis Diarrhea Epigastric pain Postoperative Diagnosis: Antral gastritis Procedure(s) Performed: EGD Colonoscopy Anesthesia: MAC Surgeon: Jourdan Zuniga Pathology: other (Antrum) Condition: stable Disposition: PACU Description of Procedure: Patient's placed on the endoscopy table in the lateral position. He received IV sedation. The gastroscope placed oropharynx passed in the esophagus and stomach. Scope was placed through the pylorus. First and second portion of duodenum appeared normal. Scope was then brought back the antrum appeared mildly inflamed. A biopsies performed. The scope was unretroflexed and remainder stomach appeared normal. The GE junction was at 40 cm. The distal esophagus appeared normal. The proximal esophagus appeared normal. The scope was withdrawn for patient. Next digital rectal exam was performed which revealed no abnormalities. The prostate was symmetrical without nodules. The flexible colonoscope was then placed patient anus passed throughout the entire colon. The ileocecal valve was visualized. The cecum, ascending and transverse colon appeared normal. The descending and sigmoid colon appeared normal. Scope was then brought back the rectum was normal. Scope was withdrawn for patient.
[2020-05-24 09:53] VITALS: BP 109/74; RESP 16
[2020-05-24 10:06] VITALS: PULSE 85
== END 2020-05-24 10:53 | disposition home or self-care (01) ==
LOC: ORWHC2ENDO 08:26
PROVIDERS: ATTEND Surgery
DX: R19.7 Diarrhea, unspecified (principal); K29.50 Unspecified chronic gastritis without bleeding; K31.9 Disease of stomach and duodenum, unspecified; M79.7 Fibromyalgia; G89.29 Other chronic pain; M54.9 Dorsalgia, unspecified; F17.210 Nicotine dependence, cigarettes, uncomplicated; Z87.19 Personal history of other diseases of the digestive system; Z90.89 Acquired absence of other organs; Z98.890 Other specified postprocedural states; Z88.1 Allergy status to other antibiotic agents; Z88.5 Allergy status to narcotic agent; Z88.0 Allergy status to penicillin; Z82.49 Family history of ischemic heart disease and other diseases of the circulatory system
CPT/HCPCS: 88305; 45378; 43239; J2001; J2704

== ENCOUNTER → 2020-06-05 | Outpatient (CLI) | payer BC ==
--- NOTE | 2020-06-05 09:42 | NM ---
EXAMINATION TYPE: NM hepatobiliary w EF DATE OF EXAM: 06/05/2020 COMPARISON: NONE HISTORY: 29-year-old male R10.9, abdominal pain TECHNIQUE: After the intravenous administration of 5 mCi Tc 99m Mebrofenin hepatobiliary scintigraphy is performed. Immediate images post injection. FINDINGS: There is satisfactory initial accumulation of tracer by the liver. The gallbladder is visualized wit hin 6 minutes. The small bowel activity is noted within 14 minutes. At one hour 8 ounces of oral en sure plus is given to mimic CCK and gallbladder ejection fraction is calculated at 45 %, in the yuri l range. IMPRESSION: No scintigraphic evidence for acute/chronic cholecystitis or biliary dyskinesia.
== END | disposition home or self-care (01) ==
LOC: RADNMMAIN 07:05
PROVIDERS: ATTEND Surgery
DX: R10.9 Unspecified abdominal pain (principal)
CPT/HCPCS: 78226; A9537

== ENCOUNTER 2021-02-24 14:42 | Emergency (ER) | payer OTHER ==
[2021-02-24 15:23] VITALS: BP 115/65; PULSE 86; TEMP 98.8
--- NOTE | 2021-02-24 16:10 | ED ---
General Adult HPI - General Chief complaint: Fever Stated complaint: body aches, hot and cold flashes Time Seen by Provider: 02/24/21 15:56 Source: patient Mode of arrival: ambulatory Limitations: no limitations - History of Present Illness Initial comments: 30-year-old male with a past medical history of fibromyalgia, pneumonia, chronic back pain, digestive problems, heart murmur presents to the emergency room for a chief complaint of not feeling well. Patient states for the past 3 days he has been very tired. States he has been sleeping more than normal. Patient also reports he has had chills and hot flashes on and off, thinks he is having fevers. Patient is not vaccinated for COVID-19. He does not have any significant past medical problems. He does not take any daily medications.Patient has no other complaints at this time including shortness of breath, chest pain, abdominal pain, nausea or vomiting, headache, or visual changes. - Related Data Home Medications Medication Instructions Recorded Confirmed No Known Home Medications 05/23/20 06/25/20 Allergies Allergy/AdvReac Type Severity Reaction Status Date / Time azithromycin [From Zithromax] Allergy Rash/Hives Verified 02/24/21 15:23 codeine Allergy Rash/Hives Verified 02/24/21 15:23 Penicillins Allergy Rash/Hives Verified 02/24/21 15:23 Review of Systems ROS Statement: Those systems with pertinent positive or pertinent negative responses have been documented in the HPI. ROS Other: All systems not noted in ROS Statement are negative. Past Medical History Past Medical History: Fibromyalgia, Pneumonia Additional Past Medical History / Comment(s): chronic back pain. heart murmur. DIGESTIVE PROBLEMS History of Any Multi-Drug Resistant Organisms: None Reported Past Surgical History: Adenoidectomy, Hernia Repair, Tonsillectomy Additional Past Surgical History / Comment(s): ORAL SURGERY Past Anesthesia/Blood Transfusion Reactions: No Reported Reaction Past Psychological History: No Psychological Hx Reported Smoking Status: Current every day smoker Past Alcohol Use History: None Reported Past Drug Use History: None Reported - Past Family History Mother Family Medical History: Deep Vein Thrombosis (DVT) General Exam Limitations: no limitations General appearance: alert, in no apparent distress Head exam: Present: atraumatic Eye exam: Present: normal appearance, PERRL, EOMI. Absent: scleral icterus, conjunctival injection ENT exam: Present: normal exam, mucous membranes moist Neck exam: Present: normal inspection, full ROM. Absent: tenderness Respiratory exam: Present: normal lung sounds bilaterally. Absent: respiratory distress, wheezes Cardiovascular Exam: Present: regular rate, normal rhythm, normal heart sounds GI/Abdominal exam: Present: soft, normal bowel sounds. Absent: distended, tenderness Course Vital Signs 02/24/21 15:20 Temperature 98.8 F Pulse Rate 86 Respiratory 18 Rate Blood Pressure 115/65 O2 Sat by Pulse 97 Oximetry Medical Decision Making - Medical Decision Making Vitals are stable. Patient is well-appearing. No worse or distress. COVID-19 is positive. Patient does not qualify for antibody infusion given we are currently amended to use prioritization guidelines from the state. Patient will be discharged home with supportive measures. - Lab Data Lab Results 02/24/21 Range/Units 15:26 Coronavirus (PCR) Detected A (Not Detectd) Disposition Clinical Impression: COVID-19 Disposition: HOME SELF-CARE Condition: Good Instructions (If sedation given, give patient instructions): Fever in Adults (ED), Coronavirus Disease 2019 (COVID-19) Additional Instructions: Please take Motrin and Tylenol at standing up to every 3 hours for fever. Drink plenty of fluids. Get plenty of rest. Return to the emergency room for any worsening symptoms. Is patient prescribed a controlled substance at d/c from ED?: No Referrals: Keesha Novak DO [Primary Care Provider] - 1-2 days Time of Disposition: 16:08
[2021-02-24 16:26] VITALS: RESP 20
== END 2021-02-24 16:26 | disposition home or self-care (01) ==
LOC: EC 14:42
DX: U07.1 COVID-19 (principal); F17.200 Nicotine dependence, unspecified, uncomplicated
CPT/HCPCS: 87635; 99283

== ENCOUNTER 2021-08-25 20:57 | Emergency (ER) | payer OTHER ==
[2021-08-25 21:15] VITALS: BP 121/71; PULSE 91; RESP 16; TEMP 98
[2021-08-25] MEDS ORDERED: KETOROLAC 15 MG/ML 1 ML VIAL IVP STA (22:02)
[2021-08-25] MEDS ORDERED: ONDANSETRON 4 MG/2 ML VIAL IVP STA (22:02)
[2021-08-25] MEDS ORDERED: SODIUM CHLORIDE 0.9% 1,000 ML IV STA ×2 (22:02)
--- NOTE | 2021-08-25 22:02 | ED ---
Abdominal Pain HPI - General Chief Complaint: Abdominal Pain Stated Complaint: Fatigue, Abdominal Discomfort, Nausea Time Seen by Provider: 08/25/21 21:37 Source: patient, RN notes reviewed, old records reviewed Mode of arrival: ambulatory Limitations: no limitations - History of Present Illness Initial Comments: This is a 30-year-old male presented with abdominal pain and fatigue. Patient states she's had some significant weakness for a few days now. Patient has no current significant complaints aside from her. Patient mild abdominal pain and cramping. Mild nausea decreased appetite, bowel movements are normal. No recent travel history or known sick contacts. No significant medical history MD Complaint: abdominal pain -: hour(s) Location: diffuse, epigastric, suprapubic Radiation: epigastric, suprapubic Migration to: no migration Severity: mild Severity scale (1-10): 4 Quality: cramping, aching Consistency: intermittent Improves With: nothing Worsens With: nothing Context: sick contacts Associated Symptoms: nausea, vomiting, constipation Treatments Prior to Arrival: NSAIDs - Related Data Home Medications Medication Instructions Recorded Confirmed No Known Home Medications 05/23/20 06/25/20 Allergies Allergy/AdvReac Type Severity Reaction Status Date / Time azithromycin [From Zithromax] Allergy Rash/Hives Verified 08/25/21 21:13 codeine Allergy Rash/Hives Verified 08/25/21 21:13 Penicillins Allergy Rash/Hives Verified 08/25/21 21:13 Review of Systems ROS Statement: Those systems with pertinent positive or pertinent negative responses have been documented in the HPI. ROS Other: All systems not noted in ROS Statement are negative. Past Medical History Past Medical History: Fibromyalgia, Pneumonia Additional Past Medical History / Comment(s): chronic back pain. heart murmur. DIGESTIVE PROBLEMS History of Any Multi-Drug Resistant Organisms: None Reported Past Surgical History: Adenoidectomy, Hernia Repair, Tonsillectomy Additional Past Surgical History / Comment(s): ORAL SURGERY Past Anesthesia/Blood Transfusion Reactions: No Reported Reaction Past Psychological History: No Psychological Hx Reported Smoking Status: Current every day smoker Past Alcohol Use History: None Reported Past Drug Use History: None Reported - Past Family History Mother Family Medical History: Deep Vein Thrombosis (DVT) General Exam Limitations: no limitations Course Vital Signs 08/25/21 21:13 Temperature 98.0 F Pulse Rate 91 Respiratory 16 Rate Blood Pressure 121/71 O2 Sat by Pulse 99 Oximetry - Reevaluation(s) Reevaluation #1: 08/25/21 23:02 Medical records reviewed Reevaluation #2: 08/25/21 23:02 Patient does feel improved currently Reevaluation #3: 08/25/21 23:59 Patient informed of results and questions answered Medical Decision Making - Medical Decision Making 30 male to the emergency department with abdominal pain fatigue. No acute findings here in the ER lab values computed tomography scan is negative patient can be discharged home - Lab Data Result diagrams: 08/25/21 21:53 08/25/21 21:53 Lab Results 08/25/21 08/25/21 08/25/21 Range/Units 21:53 21:53 21:53 WBC 8.1 (3.8-10.6) k/uL RBC 5.50 (4.30-5.90) m/uL Hgb 16.9 (13.0-17.5) gm/dL Hct 49.7 (39.0-53.0) % MCV 90.4 (80.0-100.0) fL MCH 30.6 (25.0-35.0) pg MCHC 33.9 (31.0-37.0) g/dL RDW 12.2 (11.5-15.5) % Plt Count 333 (150-450) k/uL MPV 6.7 Neutrophils % 54 % Lymphocytes % 33 % Monocytes % 5 % Eosinophils % 4 % Basophils % 2 % Neutrophils # 4.4 (1.3-7.7) k/uL Lymphocytes # 2.7 (1.0-4.8) k/uL Monocytes # 0.4 (0-1.0) k/uL Eosinophils # 0.3 (0-0.7) k/uL Basophils # 0.2 (0-0.2) k/uL Sodium 139 (137-145) mmol/L Potassium 4.1 (3.5-5.1) mmol/L Chloride 104 (98-107) mmol/L Carbon Dioxide 28 (22-30) mmol/L Anion Gap 7 mmol/L BUN 10 (9-20) mg/dL Creatinine 0.91 (0.66-1.25) mg/dL Est GFR (CKD-EPI)AfAm >90 (>60 ml/min/1.73 sqM) Est GFR (CKD-EPI)NonAf >90 (>60 ml/min/1.73 sqM) Glucose 78 (74-99) mg/dL Calcium 9.0 (8.4-10.2) mg/dL Phosphorus (2.5-4.5) mg/dL Magnesium (1.6-2.3) mg/dL Total Bilirubin 0.3 (0.2-1.3) mg/dL AST 17 (17-59) U/L ALT 13 (4-49) U/L Alkaline Phosphatase 62 (38-126) U/L Total Protein 6.6 (6.3-8.2) g/dL Albumin 4.2 (3.5-5.0) g/dL Amylase 97 (30-110) U/L Lipase 224 (23-300) U/L Urine Color Yellow Urine Appearance Clear (Clear) Urine pH 7.0 (5.0-8.0) Ur Specific Orrum 1.016 (1.001-1.035) Urine Protein Negative (Negative) Urine Glucose (UA) Negative (Negative) Urine Ketones Negative (Negative) Urine Blood Negative (Negative) Urine Nitrite Negative (Negative) Urine Bilirubin Negative (Negative) Urine Urobilinogen <2.0 (<2.0) mg/dL Ur Leukocyte Esterase Negative (Negative) Coronavirus (PCR) (Not Detectd) Influenza Type A RNA (Not Detectd) Influenza Type B (PCR) (Not Detectd) 08/25/21 08/25/21 08/25/21 Range/Units 21:53 22:33 22:33 WBC (3.8-10.6) k/uL RBC (4.30-5.90) m/uL Hgb (13.0-17.5) gm/dL Hct (39.0-53.0) % MCV (80.0-100.0) fL MCH (25.0-35.0) pg MCHC (31.0-37.0) g/dL RDW (11.5-15.5) % Plt Count (150-450) k/uL MPV Neutrophils % % Lymphocytes % % Monocytes % % Eosinophils % % Basophils % % Neutrophils # (1.3-7.7) k/uL Lymphocytes # (1.0-4.8) k/uL Monocytes # (0-1.0) k/uL Eosinophils # (0-0.7) k/uL Basophils # (0-0.2) k/uL Sodium (137-145) mmol/L Potassium (3.5-5.1) mmol/L Chloride (98-107) mmol/L Carbon Dioxide (22-30) mmol/L Anion Gap mmol/L BUN (9-20) mg/dL Creatinine (0.66-1.25) mg/dL Est GFR (CKD-EPI)AfAm (>60 ml/min/1.73 sqM) Est GFR (CKD-EPI)NonAf (>60 ml/min/1.73 sqM) Glucose (74-99) mg/dL Calcium (8.4-10.2) mg/dL Phosphorus 3.5 (2.5-4.5) mg/dL Magnesium 2.0 (1.6-2.3) mg/dL Total Bilirubin (0.2-1.3) mg/dL AST (17-59) U/L ALT (4-49) U/L Alkaline Phosphatase (38-126) U/L Total Protein (6.3-8.2) g/dL Albumin (3.5-5.0) g/dL Amylase (30-110) U/L Lipase (23-300) U/L Urine Color Urine Appearance (Clear) Urine pH (5.0-8.0) Ur Specific Orrum (1.001-1.035) Urine Protein (Negative) Urine Glucose (UA) (Negative) Urine Ketones (Negative) Urine Blood (Negative) Urine Nitrite (Negative) Urine Bilirubin (Negative) Urine Urobilinogen (<2.0) mg/dL Ur Leukocyte Esterase (Negative) Coronavirus (PCR) Not Detected (Not Detectd) Influenza Type A RNA Not Detected (Not Detectd) Influenza Type B (PCR) Not Detected (Not Detectd) - Radiology Data Radiology results: report reviewed (CT head and pelvis negative for acute disease), image reviewed Disposition Clinical Impression: Abdominal pain Disposition: HOME SELF-CARE Condition: Good Instructions (If sedation given, give patient instructions): Abdominal Pain (ED) Is patient prescribed a controlled substance at d/c from ED?: No Referrals: Keesha Novak DO [Primary Care Provider] - 1-2 days
[2021-08-25 22:03] LABS: Appearance,Urine Clear (Clear); Basophils # (A) 0.2 k/uL (0-0.2); Basophils % (A) 2 %; Bilirubin,Urine Negative (Negative); Blood,Urine Negative (Negative); Color,Urine Yellow; Eosinophils # (A) 0.3 k/uL (0-0.7); Eosinophils % (A) 4 %; Glucose,Urine (UA) Negative (Negative); HCT 49.7 % (39.0-53.0); HGB 16.9 gm/dL (13.0-17.5); Ketones,Urine Negative (Negative); Leukocyte Esterase,Urine Negative (Negative); Lymphocytes # (A) 2.7 k/uL (1.0-4.8); Lymphocytes % (A) 33 %; MCH 30.6 pg (25.0-35.0); MCHC 33.9 g/dL (31.0-37.0); MCV 90.4 fL (80.0-100.0); Mean Platelet Volume 6.7; Monocytes # (A) 0.4 k/uL (0-1.0); Monocytes % (A) 5 %; Neutrophils # (A) 4.4 k/uL (1.3-7.7); Neutrophils % (A) 54 %; Nitrite,Urine Negative (Negative); Platelet Count 333 k/uL (150-450); Protein,Urine Negative (Negative); RDW 12.2 % (11.5-15.5); Specific Gravity,Urine 1.016 (1.001-1.035); Urobilinogen,Urine <2.0 mg/dL (<2.0); WBC 8.1 k/uL (3.8-10.6)
[2021-08-25 22:13] LABS: ALT 13 U/L (4-49); AST 17 U/L (17-59); African American GFR (CKD) >90 (>60 ml/min/1.73 sqM); Albumin 4.2 g/dL (3.5-5.0); Alkaline Phosphatase 62 U/L (38-126); Amylase 97 U/L (30-110); Anion Gap 7 mmol/L; Blood Urea Nitrogen 10 mg/dL (9-20); Carbon Dioxide 28 mmol/L (22-30); Chloride 104 mmol/L (98-107); Glucose 78 mg/dL (74-99); Lipase 224 U/L (23-300); Non-African American GFR(CKD) >90 (>60 ml/min/1.73 sqM); Potassium 4.1 mmol/L (3.5-5.1); Sodium 139 mmol/L (137-145); Total Bilirubin 0.3 mg/dL (0.2-1.3); Total Protein 6.6 g/dL (6.3-8.2)
[2021-08-25 22:37] LABS: Phosphorus 3.5 mg/dL (2.5-4.5)
--- NOTE | 2021-08-25 23:02 | CT ---
EXAMINATION TYPE: CT abdomen pelvis wo con DATE OF EXAM: 08/25/2021 COMPARISON: 09/20/2018 HISTORY: abd pain CT DLP: 543.7 mGycm Automated exposure control for dose reduction was used. Images obtained from the diaphragm to the floor the pelvis without contrast. There is subsegmental atelectasis at the lung bases. Heart size is normal. No pericardial effusion. L iver spleen and stomach pancreas appear intact. The bile ducts are not dilated. There is no adrenal mass. Kidneys have normal size and contour. No hydronephrosis. Ureters are not di lated. Bladder distends smoothly. No inguinal hernia. No free fluid in the pelvis. There is no mesenteric edema. No ascites or free air. No sign of a bowel obstruction. Appendix not se en. No sign of thickened appendix. The lumbar vertebra appear intact. No compression fracture. Posterior elements are intact. Bony pelvi s is intact. Sacroiliac joints are intact. IMPRESSION: Minimal subsegmental atelectasis at the lung bases. No acute abnormality in the abdomen and pelvis. A ppendix not seen. No adverse change.
== END 2021-08-26 00:24 | disposition home or self-care (01) ==
LOC: EC 20:57
DX: R10.9 Unspecified abdominal pain (principal); F17.200 Nicotine dependence, unspecified, uncomplicated; Z20.822 Contact with and (suspected) exposure to COVID-19; Z88.5 Allergy status to narcotic agent; Z88.0 Allergy status to penicillin
CPT/HCPCS: 36415; 80053; 82150; 83690; 83735; 84100; 85025; 81003; 87502; 87635; 74176; 99284; 96374; 96375; 96361; J2405; J1885

== ENCOUNTER 2021-09-05 01:23 | Emergency (ER) | payer OTHER ==
[2021-09-05 01:29] VITALS: PULSE 92; RESP 16; TEMP 98.2
[2021-09-05] MEDS ORDERED: MORPHINE SULFATE 4 MG/ML SYRINGE IVP STA (01:50)
[2021-09-05] MEDS ORDERED: GELATIN SPONGE,ABSORB (LARGE) 1 EACH SPONGE TOPICAL STA (02:02)
[2021-09-05] MEDS ORDERED: DIPH,PERTUS(ACELL)TETVAC-LF 0.5 ML VIAL IM ONE (02:09)
--- NOTE | 2021-09-05 02:11 | ED ---
Upper Extremity HPI - General Chief Complaint: Extremity Injury, Upper Stated Complaint: hand injury Time Seen by Provider: 09/05/21 01:31 Source: patient Mode of arrival: wheelchair Limitations: no limitations - History of Present Illness Initial Comments: Patient is a 30-year-old male presenting with chief complaint of injury to the right index finger. Patient states that he crushed the finger between a trailer and a cement block. He noticed pain and bleeding immediately following, on presented to the ER for evaluation. Patient has full sensation and range of motion. He denies any numbness, tingling, weakness. - Related Data Previous Rx's Medication Instructions Recorded Cephalexin [Keflex] 500 mg PO Q12HR 5 Days #10 cap 09/05/21 Allergies Allergy/AdvReac Type Severity Reaction Status Date / Time azithromycin [From Zithromax] Allergy Rash/Hives Verified 09/05/21 01:27 codeine Allergy Rash/Hives Verified 09/05/21 01:27 Penicillins Allergy Rash/Hives Verified 09/05/21 01:27 Review of Systems ROS Statement: Those systems with pertinent positive or pertinent negative responses have been documented in the HPI. ROS Other: All systems not noted in ROS Statement are negative. Past Medical History Past Medical History: Fibromyalgia, Pneumonia Additional Past Medical History / Comment(s): chronic back pain. heart murmur. DIGESTIVE PROBLEMS History of Any Multi-Drug Resistant Organisms: None Reported Past Surgical History: Adenoidectomy, Hernia Repair, Tonsillectomy Additional Past Surgical History / Comment(s): ORAL SURGERY Past Anesthesia/Blood Transfusion Reactions: No Reported Reaction Past Psychological History: No Psychological Hx Reported Smoking Status: Current every day smoker Past Alcohol Use History: Occasional Past Drug Use History: Cocaine - Past Family History Mother Family Medical History: Deep Vein Thrombosis (DVT) General Exam Limitations: no limitations General appearance: alert, in no apparent distress Head exam: Present: atraumatic, normocephalic, normal inspection Eye exam: Present: normal appearance, EOMI. Absent: scleral icterus, periorbital swelling Neck exam: Present: normal inspection Right Hand Wrist exam: Present: amputation (Partial amputation of the distal third of the right index finger.) Neurological exam: Present: alert, oriented X3, CN II-XII intact Psychiatric exam: Present: normal affect, normal mood Course Vital Signs 09/05/21 09/05/21 01:27 01:47 Temperature 98.2 F Pulse Rate 92 Respiratory 16 Rate Blood Pressure 92/52 140/85 O2 Sat by Pulse 98 Oximetry Medical Decision Making - Medical Decision Making Patient is a 30-year-old male presenting with chief complaint of right index finger injury. Patient crushed the finger between a trailer and cement block. On examination there appears to be partial amputation involving the bone of the right index finger. Patient is given pain medication. X-ray shows Soft tissue amputation deformity at the tip of the right index finger, no fracture seen. Tetanus was updated. Bulky dressing was applied, patient will be given Keflex 500 mg twice a day for 5 days. Patient given Tylenol 3 starter pack. Instructed to follow-up with orthopedics in one to 2 days, call the office in the morning. Report back to ER with any new or worsening symptoms. Discussed return parameters and answered all questions. Patient conveyed verbal understanding and agreed to the plan. I discussed this case with my attending Dr. Johnston. Disposition Clinical Impression: Amputation of finger tip Disposition: HOME SELF-CARE Condition: Fair Instructions (If sedation given, give patient instructions): Finger Amputation (ED) Additional Instructions: Call orthopedics tomorrow morning for follow-up. Report back to ER with any new or worsening symptoms. Rest, elevate, take Motrin and Tylenol as needed for pain control. Take medication as prescribed. Prescriptions: Cephalexin [Keflex] 500 mg PO Q12HR 5 Days #10 cap Is patient prescribed a controlled substance at d/c from ED?: No Referrals: Miguel Ángel Novak MD [Primary Care Provider] - 1-2 days Flo Weiner DO [Doctor of Osteopathic Medicine] - 1-2 days Time of Disposition: 02:44
[2021-09-05] MEDS ORDERED: GELATIN SPONGE,ABSORB (LARGE) 1 EACH SPONGE TOPICAL ONE (02:15)
--- NOTE | 2021-09-05 02:21 | XR ---
EXAMINATION TYPE: XR finger RT DATE OF EXAM: 09/05/2021 COMPARISON: NONE HISTORY: Crush injury TECHNIQUE: 3 views FINDINGS: There is soft tissue amputation deformity at the tip of the right index finger. There is ex posure of the tuft of the distal phalanx. No foreign body seen. No fracture seen. IMPRESSION: Soft tissue amputation deformity of the tip of the right index finger.
[2021-09-05] MEDS ORDERED: ACET/COD 300 MG/30 MG STARTER PACK 6 TAB BTL PO STA (02:40)
[2021-09-05] MEDS ORDERED: CEPHALEXIN 500 MG CAP PO STA (02:47)
[2021-09-05 03:13] VITALS: BP 138/68
== END 2021-09-05 03:13 | disposition home or self-care (01) ==
LOC: EC 01:23
DX: S67.190A Crushing injury of right index finger, initial encounter (principal); F17.200 Nicotine dependence, unspecified, uncomplicated; Z88.1 Allergy status to other antibiotic agents; Z89.021 Acquired absence of right finger(s); Z23 Encounter for immunization; Z88.5 Allergy status to narcotic agent; Z88.0 Allergy status to penicillin; W23.1XXA Caught, crushed, jammed, or pinched between stationary objects, initial encounter
CPT/HCPCS: 73140; 90715; 99283; 96374; 90471; J2270

== ENCOUNTER 2021-09-11 13:56 | Day surgery (SDC) | payer OTHER ==
--- NOTE | 2021-09-09 09:31 | P.HPOR ---
History of Present Illness H&P Date: 09/09/21 Chief Complaint: Right index finger tip amputation Subjective: This is a 30 year old male that presents today for initial evaluation regarding a right index finger tip amputation that occurred on 09/04/21 when he got his index finger caught between a brick and trailer tongue. He was seen at the ED where his wound was washed out and dressing was placed. He was prescribed and antibiotic but has not picked it up yet. He is RHD and denies any previous inj ury to this finger in the past. Physical Examination: RUE: AIN/PIN/Radial/Ulnar/Median motor intact. Radial/Ulnar/Median SILT. 2+/4 Radial/Ulnar pulses palpated. 5/5 APB, 5/5 FDI. Negative Finkelsteins, negative CMC grind, negative Durkan's compression. Right index finger dorsal oblique tip amputation with exposed distal phalanx. Imaging: X-Rays of the right index finger demonstrate soft tissue amputation of the distal portion with exposed distal phalanx. No acute fracture seen. Impression: 1.) Right index fingertip amputation with exposed distal phalanx. Plan: Diagnosis and treatment options were discussed with the patient. He has exposed bone at the site of his right index finger tip amputation and I recommend surgical intervention in the form of right index finger revision amputation with possible pinch skin grafting vs local advancement flap. Risks and benefits of surgery including bleeding, infection, damage to surrounding tissue, need for further surgery, residual numbness were discussed and the patient wished to go forward with surgery -Flo Weiner DO Orthopedic Hand/Upper Extremity Surgeon Past Medical History Past Medical History: Fibromyalgia, Pneumonia Additional Past Medical History / Comment(s): chronic back pain. heart murmur. DIGESTIVE PROBLEMS History of Any Multi-Drug Resistant Organisms: None Reported Past Surgical History: Adenoidectomy, Hernia Repair, Tonsillectomy Additional Past Surgical History / Comment(s): ORAL SURGERY Past Anesthesia/Blood Transfusion Reactions: No Reported Reaction Past Psychological History: No Psychological Hx Reported Smoking Status: Current every day smoker Past Alcohol Use History: Occasional Past Drug Use History: Cocaine - Past Family History Mother Family Medical History: Deep Vein Thrombosis (DVT) Medications and Allergies Home Medications Medication Instructions Recorded Confirmed Type Cephalexin [Keflex] 500 mg PO Q12HR 5 Days #10 cap 09/05/21 Rx Allergies Allergy/AdvReac Type Severity Reaction Status Date / Time azithromycin [From Zithromax] Allergy Rash/Hives Verified 09/05/21 01:27 codeine Allergy Rash/Hives Verified 09/05/21 01:27 Penicillins Allergy Rash/Hives Verified 09/05/21 01:27 Physical Examination Osteopathic Statement: *. No significant issues noted on an osteopathic structural exam other than those noted in the History and Physical/Consult.
[~2021-09-11 13:56] MED LIST changes: +DEXAMETHASONE SOD PHOSPHATE 4 MG/ML 1 ML VIAL IV ONE; +HYDROmorphone 0.5 MG/0.5 ML SYRINGE IVP PRN; +LIDOCAINE 1% (10MG/ML) FOR IV START INTRADERMA PRN; +METOCLOPRAMIDE 5 MG/ML 2 ML VIAL IVP PRN; +ONDANSETRON 4 MG/2 ML VIAL IVP ONE
[2021-09-11] MEDS ORDERED: PROPOFOL 10 MG/ML 20 ML VIAL IV ONE (16:05)
[2021-09-11] MEDS ORDERED: fentaNYL (PF) 50 MCG/ML 2 ML AMP ONE (16:05)
[2021-09-11] MEDS ORDERED: LIDOCAINE 2% INJ 20 MG/ML (2 ML VIAL) ONE (16:05)
[2021-09-11] MEDS ORDERED: MIDAZOLAM 2 MG/2 ML VIAL ONE (16:05)
[2021-09-11] MEDS ORDERED: BUPIVACAINE (PF) 0.5% 30 ML VIAL SQ ONE (16:14)
[2021-09-11] MEDS ORDERED: LIDOCAINE 1% INJ 10MG/ML (20 ML MDV) SQ ONE (16:14)
[2021-09-11] MEDS ORDERED: BACITRACIN ZINC 500 UNIT/GM OINT 28.4 GM TUBE TOPICAL ONE (16:39)
[2021-09-11 16:56] VITALS: TEMP 98.5
[2021-09-11 18:05] VITALS: BP 110/63; PULSE 71; RESP 17
--- NOTE | 2021-09-12 06:59 | P.OP ---
Date of Procedure: 09/11/21 Preoperative Diagnosis: Right index finger tip amputation Postoperative Diagnosis: Right index finger tip amputation Procedure(s) Performed: Right index finger revision amputation Anesthesia: MAC Surgeon: Flo Weiner Pneumatic Drum Sander #1: Froilan Nagy Estimated Blood Loss (ml): 0 Pathology: none sent Condition: stable Disposition: PACU Description of Procedure: This is a 30 year old male who sustained a distal tip amputation of his right index finger and presents today for revision amputation. Risks and benefits of surgery were discussed with the patient including bleeding, damage to surrounding tissue, infection, need for further surgery as well as risks of anesthesia including pulmonary embolism and even and the patient wished to proceed with surgical intervention. The patient was seen in the pre-operative area by myself. Consent and H&P were completed and updated. The correct extremity was marked in the pre-operative area by myself and all other questions were answered. Operative Narrative: The patient was brought to the operating room by the department of anesthesia. They remained on the portable stretcher and a rolling hand table was brought to the side of the operative extremity. Pre-operative time out was performed indicating the correct patient, procedure and laterality. All in the room agreed. Pre-operative antibiotics were given prior to skin incision. The patient was then drifted off to sleep by the department of anesthesia. A mixture of 1% lidocaine and 0.5% bupivicaine was used to perform a digital block. A nonsterile tourniquet was then applied to the operative extremity and the right upper extremity was then prepped and draped in normal sterile fashion. The operative extremity was the exsanguinated with an esmarch bandage and the tourniquet was inflated to 250mmHg. 15 blade scalpel was utilized to remove non viable tissue and hematoma around the fingertip while irrigating with sterile saline and a curette. There was exposed bone present at the site of the amputation. Rongeur was used to take approximately 1-2mm of additional distal phalanx to create a more profiled distal phalanx while preserving the FDP and terminal extensor insertions. Skin edges were sharply incised to create fresh, flush skin edges. 4-0 chromic suture was then utilized to approximate the mobilized flap to the dorsal skin and remaining sterile matrix to create good soft tissue coverage over the bone. Sterile dressing was then applied consisting of bacitracin, adaptic, 4x4s, and coban wrap. Tourniquet was let down and the hand had immediate perfusion. The patient was then woken by the department of anesthesia and transferred to PACU in stable condition.. Flo Weiner D.O. Orthopedic Hand/Upper Extremity Surgeon
== END 2021-09-11 18:20 | disposition home or self-care (01) ==
LOC: OR 13:56
PROVIDERS: ATTEND Orthopaedic Surgery Hand Surgery
DX: S68.110A Complete traumatic metacarpophalangeal amputation of right index finger, initial encounter (principal); W23.0XXA Caught, crushed, jammed, or pinched between moving objects, initial encounter; M79.7 Fibromyalgia; R01.1 Cardiac murmur, unspecified; G89.29 Other chronic pain; M54.9 Dorsalgia, unspecified; F17.200 Nicotine dependence, unspecified, uncomplicated; Z82.49 Family history of ischemic heart disease and other diseases of the circulatory system; Z88.0 Allergy status to penicillin; Z88.3 Allergy status to other anti-infective agents; Z88.5 Allergy status to narcotic agent; Z88.8 Allergy status to other drugs, medicaments and biological substances
CPT/HCPCS: 26951; J2250; J1100; J0690; J2405; J2001 ×2; J3010; J2704; J1170